=== PATIENT | female | born 1950 | race Caucasian/White ===

== ENCOUNTER 2017-04-20 15:24 | Emergency (ER) | payer MEDICARE, MEDICAID ==
[~2017-04-20] VITALS: Ht 157.5 cm; Wt 56.8 kg
[2017-04-20] MEDS ORDERED: LISI-660 PO (15:44)
[2017-04-20] MEDS ORDERED: ATOR40TA28 PO (15:44)
[2017-04-20] MEDS ORDERED: FURO40 PO (15:44)
[2017-04-20] MEDS ORDERED: TRAZ-144 PO (15:44)
[2017-04-20] MEDS ORDERED: OMEP20 PO (15:44)
[2017-04-20] MEDS ORDERED: LAMO100 PO (15:44)
[2017-04-20] MEDS ORDERED: KDUR20 PO (15:44)
[2017-04-20] MEDS ORDERED: OXYB5 PO (15:44)
[2017-04-20] MEDS ORDERED: BUPR100 PO (15:44)
[2017-04-20 17:59] VITALS: BP 160/92
== END 2017-04-20 18:52 | disposition home or self-care (01) ==
LOC: EMS 15:27
DX: I69.911 Memory deficit following unspecified cerebrovascular disease (principal); F31.9 Bipolar disorder, unspecified; I10 Essential (primary) hypertension; K21.9 Gastro-esophageal reflux disease without esophagitis; E78.00 Pure hypercholesterolemia, unspecified; Z88.0 Allergy status to penicillin; Z88.8 Allergy status to other drugs, medicaments and biological substances
CPT/HCPCS: 99284